=== PATIENT | female | born 1950 | race Caucasian/White ===

== ENCOUNTER 2017-08-28 09:21 | Outpatient (CLI) | payer OTHER | END 2017-08-28 09:40 | disposition home or self-care (01) | LOC: RAD 09:21 | DX: M25.512 Pain in left shoulder (principal) ==

== ENCOUNTER 2017-08-28 09:31 | Outpatient (CLI) | payer OTHER | END 2017-08-28 09:44 | disposition home or self-care (01) | LOC: SONOGRAMA 09:31 | DX: M25.512 Pain in left shoulder (principal) ==

== ENCOUNTER 2024-09-28 08:12 | Outpatient (CLI) | payer OTHER | END 2024-09-28 08:14 | disposition home or self-care (01) | LOC: NUCLEAR 08:12 | PROVIDERS: ATTEND Internal Medicine Cardiovascular Disease | DX: I87.2 Venous insufficiency (chronic) (peripheral) (principal) ==